=== PATIENT | female | born 1965 ===

== ENCOUNTER 2023-01-22 06:00 | Day surgery (SDC) | payer OTHER ==
[~2023-01-22] VITALS: Ht 170.2 cm; Wt 80.7 kg
[~2023-01-22 06:00] MED LIST: METOP PO; SYNTHROID50 MCG PO; [UNRECOGNIZED DRUG - OTHER] PO; [UNRECOGNIZED DRUG - OTHER] PO; avapro PO
== END 2023-01-22 14:50 | disposition home or self-care (01) ==
LOC: CIR.AMB 06:00 → EDSTATUS 09:15 → OB/GYN 09:15 → CIR.AMB 09:15
PROVIDERS: ATTEND Specialist
DX: N84.0 Polyp of corpus uteri (principal); N95.0 Postmenopausal bleeding; D25.9 Leiomyoma of uterus, unspecified; E03.9 Hypothyroidism, unspecified; D68.9 Coagulation defect, unspecified; Z20.822 Contact with and (suspected) exposure to COVID-19